=== PATIENT | male | born 1960 | race Caucasian/White ===

== ENCOUNTER 2019-05-05 15:11 | Inpatient (IN) | payer OTHER ==
[~2019-05-05] VITALS: Ht 193 cm; Wt 129.7 kg
[2019-05-05 15:18] VITALS: Ht 193 cm; Wt 129.7 kg
--- NOTE | 2019-05-05 16:00 | NUR ---
RECEIVED AWAKE ALERT ORIENTED, STATED HAD CHEST PAIN 2 DAYS AGO ND NOW FREE OF CHEST PAINS , HERE MAINLY FOR BILATERAL LOWER EXTREMITIES SKIN RASH WITH MILD PITTING EDEMA,
--- NOTE | 2019-05-05 16:20 | NUR ---
IV ESTABLISHED BLOOD DRAWN FOR CHEST CT SCAN WITH CONTRAST ,
[2019-05-05 16:21] LABS: BASOPHIL % 0.4 % (0-2); PLATELET COUNT 207 x10^3mcL (130-400); RED CELL DISTRIBUTION WIDTH 14.5 % (11.5-14.5)
[2019-05-05 16:32] LABS: CALCIUM 8.5 mg/dL (8.5-10.1); CARBON DIOXIDE 26.3 mmol/L (21-32); CHLORIDE SERUM 99 mmol/L (98-107); CREATININE SERUM 1.2 mg/dL (0.7-1.3); GFR1 > 60 mL/min; GLUCOSE SERUM 278 mg/dL (74-106); POTASSIUM SERUM 3.8 mmol/L (3.5-5.1); SODIUM SERUM 137 mmol/L (136-145)
[2019-05-05 16:37] LABS: ALKALINE PHOSPHATASE 90 U/L (46-116); ALT/SGPT 21 U/L (16-63); AST/SGOT 17 U/L (15-37); BILIRUBIN TOTAL 0.84 mg/dL (0.20-1.00); TOTAL PROTEIN, SERUM 6.5 g/dL (6.4-8.2)
[2019-05-05 16:41] LABS: ALBUMIN 3.1 g/dL (3.4-5.0)
--- NOTE | 2019-05-05 18:11 | NUR ---
WAITING CT SCAN AND US RESULTS,RESTING IN BED, BANKRUPTCY JUDGE IN SR,
[2019-05-05] MEDS ORDERED: EFFEXOR-XR150 MG PO (18:50)
[2019-05-05] MEDS ORDERED: ABILIFY5 M1 PO (18:51)
[2019-05-05] MEDS ORDERED: METOPROLOL TART25 M1 PO (18:52)
[2019-05-05] MEDS ORDERED: FENOFIBRATE145 M1 PO (18:53)
[2019-05-05] MEDS ORDERED: ATACAND32 MG (18:53)
[2019-05-05] MEDS ORDERED: JARDIANCE10 MG (18:55)
[2019-05-05] MEDS ORDERED: XARELTO20 M1 PO (18:55)
[2019-05-05] MEDS ORDERED: TRADJENTA5 M1 (18:55)
[2019-05-05] MEDS ORDERED: LIPI20 PO (18:56)
--- NOTE | 2019-05-05 19:30 | NUR ---
RECEIVED REPORT FROM CHERRI ELLIS IN ER. PT IS ALERT AND ORIENTED X4. PUPILS REACTIVE TO LIGHT. PT IS BREATHING E/U ON RA. LUNG SOUNDS CLEAR TO BILATERAL UPPER LOBES, DIMINISHED TO BILATERAL LOWER LOBES. S1 S2 HEART SOUNDS AUSCULTATED. CAP REFILL <3 SECS X4. SKIN IS WARM AND CONSISTENT WITH ETHNICITY. PERIPHERAL IV TO RAC PATENT, DRESSING CDI. HEP LOCK. ABD IS SOFT AND ROUNDED WITH ACTIVE BOWEL SOUNDS X4Q. HARDY DRAINING VIA GRAVITY. URINE IS JULIO WITH FAIR OUTPUT. PT HAS REDNESS TO BLE, WITH PITTING EDEMA. EXTREMITIES ELEVATED. ALL QUESTIONS AND CONCERNS ANSWERED.
--- NOTE | 2019-05-05 20:25 | NUR ---
REPORT GIVEN TO CHERRI VENTURA TO ASSUME CARE OF PT.
[2019-05-05 20:28] LABS: LIPASE 124 IU/L (73-393); MAGNESIUM 2.1 mg/dL (1.8-2.4); PHOSPHOROUS 3.5 mg/dL (2.5-4.9)
[2019-05-05 20:29] LABS: T3 TOTAL 0.91 ng/mL
[2019-05-05 20:30] LABS: CHOLESTEROL 270 mg/dL (<200); HDL CHOLESTEROL 30 mg/dL (40-60); TRIGLYCERIDES 1297 mg/dL (<150)
--- NOTE | 2019-05-05 20:40 | NUR ---
PT TRANSFERRED TO TELE FLOOR ACCOMPANIED BY NURSE AND EMT. PT CONNECTED TO MONITOR DURING TRANSFER. NO S/S OF DISTRESS. RESP E/U. IV SITE PATENT, NO S/S OF INFILTRATION.
[2019-05-05 20:41] LABS: microscopic required? NO
[2019-05-05 20:54] LABS: FREE T4 1.19 ng/dL (0.76-1.46); FREE THYROXINE INDEX 3.4 ug/dL (1.4-4.5); T4(THYROXINE) 8.8 ug/dL (4.7-13.3)
[2019-05-05 21:01] LABS: UA SPECIFIC GRAVITY <=1.005 (1.005-1.035); urine erythrocyte NEGATIVE (NEGATIVE)
[2019-05-05 21:10] LABS: AMPHETAMINE QUAL UR NONE DETECTED (See below)
[2019-05-05 21:16] VITALS: BP 1125/56
--- NOTE | 2019-05-05 21:26 | NUR ---
RECEIVED PT FROM ER, PT ADMIT FOR CHEST PAIN, PT IS A/O X4, VERBAL RESPONSIVE, ABLE TO TELL WHAT HE NEEDS. LUNG SOUND CLEAR BILATERAL, NO COUGH, NO SOB,. PT IS ON TELE 16, NSR, DENY ANY CHEST PAIN AT THIS MOMENT, PT STATE HAS CHEST DISCOMFORT FOR PAST 2 DAYS. BUT NO PAIN AT THIS MOMENT, BOWEL SOUND PRESENT ALL 4 QUADRANTS, NO DISTENTION, NO TENDER. PEDAL PULSE PRESENT BOTH FEET, BLE RED AND SWELLING NOTED. PT STATE THAT HAPPEN X 1 DAYS. IV AT RIGHT AC, NO LEAKING, NO INFILTRATION. ALL ADLS ASSIST, ALL NEED MET, CALL LIGHT IN REACH, WILL CONTINUE TO MONITOR.
--- NOTE | 2019-05-06 01:56 | NUR ---
PT SLEEPING. CHEST RISE AND FALL PRESENT. NS INFUSING AT 100 ML/HR. WILL CONTINUE TO MONITOR.
--- NOTE | 2019-05-06 05:45 | NUR ---
PT SLEEPING. CHEST RISE AND FALL. LAB AT BEDSIDE FOR BLOOD DRAW.
[2019-05-06 06:44] LABS: CALCIUM 8.2 mg/dL (8.5-10.1); CARBON DIOXIDE 30.9 mmol/L (21-32); CHLORIDE SERUM 104 mmol/L (98-107); CREATININE SERUM 0.9 mg/dL (0.7-1.3); GFR1 > 60 mL/min; GLUCOSE SERUM 187 mg/dL (74-106); POTASSIUM SERUM 4.2 mmol/L (3.5-5.1); SODIUM SERUM 142 mmol/L (136-145)
[2019-05-06 06:45] LABS: BASOPHIL % 0.5 % (0-2); PLATELET COUNT 157 x10^3mcL (130-400)
[2019-05-06 06:56] LABS: RED CELL DISTRIBUTION WIDTH 14.6 % (11.5-14.5)
[2019-05-06 07:10] VITALS: BP 140/70
--- NOTE | 2019-05-06 07:20 | NUR ---
RECEIVED PT FROM BOTTOM SAW OPERATOR CHERRI. Sanjeev/SAVANNAH. TELE#[id number]. DENIES CHEST PAIN/PRESSURE. RESPIRATIONS EQUAL AND UNLABORED ON RA. DENIES SOB. PT DENIES ANY PAIN AT THIS TIME. PT DENIES ANY ABDOMINAL PAIN. LAB AT BEDSIDE DRAWING AM LABS. AMBULATES PER BRP. ERYTHEMA RASH SCATTERED THROUGHOUT BLE, BLOWER FEEDER DYED RAW STOCK. PT STATES "IT JUST HAPPENED. I DONT HAVE ANY PAIN OR ITCHINESS TO THEM. THIS HAS HAPPENED BEFORE BUT NOT THIS BAD" IV PATENT AND INFUSING TO RAC. NO REDNESS OR SWELLING NOTED. WILL CONTINUE TO MONITOR. CALL LIGHT IN REACH. BED IN LOWEST POSITION.
[2019-05-06 08:14] VITALS: BP 119/71
--- NOTE | 2019-05-06 09:25 | NUR ---
PT SITTING UP IN BED. NO ACUTE RESP DISTRESS NOTED ON RA. PT DENIES ANY PAIN AT THIS TIME. GIVEN PO MEDS. TOLERATED WELL. FAMILY AT BEDSIDE. PT ASKING IF EFFEXOR IS CARRIED A CAPSULE. PT STATES "I USUALLY TAKE EFFEXOR XR CAPSULE" SPOKE WITH EZEKIEL WE DO CARRY THE MEDICATION. PER EZEKIEL WILL FIX MORNING DOSE FOR TOMORROW. PT UPDATED. WILL CONTINUE TO MONITOR. CALL LIGHT IN REACH. BED IN LOWEST POSITION.
[2019-05-06 11:20] VITALS: BP 111/64
--- NOTE | 2019-05-06 12:05 | NUR ---
PT SITTING UP. NO ACUTE RESP DISTRESS NOTED ON RA. DR. GEIGER AT BEDSIDE. PT EAGAR TO BE DISCHARGED. DR. GEIGER OKAY WITH DISCHARGING PT TODAY. PT BLOOD SUGAR CHECKED WAS 193. GIVEN 3 UNITS OF REGULAR INSULIN PER SLIDING SCALE. INFORMED PT ONCE DISCHARGE IS AVAILABLE WILL D/C PT HOME. PT VERBALIZED UNDERSTANDING. PT WANTS TO WAIT TO DISCHARGE AFTER EATING LUNCH. WILL CONTINUE TO MONITOR. CALL LIGHT IN REACH. BED IN LOWEST POSITION.
--- NOTE | 2019-05-06 12:24 | NUR ---
ECHO NOT DONE PT. REFUSED. BEING DISCHARGED HOME
--- NOTE | 2019-05-06 13:00 | NUR ---
PT SITTING UP AT BEDSIDE. PT GIVEN DISCHARGE INSTRUCTIONS. PT ENCOURAGED TO CONTINUE ACTIVITY TOLERATED. PT ENCOURAGED TO FOLLOW A CARDIAC DIET. PT ENCOURAGED TO CONTINUE HOME MEDICATIONS PRESCRIBED. PT INSTRUCTED DOSE TO EFFEXOR AND METROPOLOL WERE GIVEN TODAY, CONTINUE TO TAKE MEDS PRESCRIBED. PT VERBALIZED UNDERSTANDING. PT GIVEN DISCHARGE INSTRUCTIONS WITH LABS AND DIAGNOSTIC TEST DONE WHILE INPATIENT. PT VERBALIZED UNDERSTANDING. PT ENCOURAGED TO FOLLOW UP WITH PCP WITHIN 1 WEEK, PT STATES "I HAVE AN APPOINTMENT WITH MY PCP ON SATURDAY 05/12. IV TO RAC REMOVED CATHETER INTACT. NO REDNESS OR SWELLING NOTED. ALL QUESTIONS AND CONCERNS ADDRESSED. NO PROBLEMS ENCOUNTERED. TELE#[id number] RETURNED TO MATERIALS MANAGEMENT SUPERVISOR MARTHA. PT TAKEN OFF FLOOR BY SACHIN.
== END 2019-05-06 13:14 | disposition home or self-care (01) | DRG 206 ==
LOC: ED 15:11 → DU 19:49
PROVIDERS: ADMIT General Practice
DX: M94.0 Chondrocostal junction syndrome [Tietze] (principal); E11.65 Type 2 diabetes mellitus with hyperglycemia; R60.9 Edema, unspecified; R21 Rash and other nonspecific skin eruption; I11.9 Hypertensive heart disease without heart failure; I25.10 Atherosclerotic heart disease of native coronary artery without angina pectoris; J44.9 Chronic obstructive pulmonary disease, unspecified; F32.9 Major depressive disorder, single episode, unspecified; Z79.84 Long term (current) use of oral hypoglycemic drugs; Z95.5 Presence of coronary angioplasty implant and graft; Z86.711 Personal history of pulmonary embolism; Z86.718 Personal history of other venous thrombosis and embolism; Z79.01 Long term (current) use of anticoagulants; Z68.35 Body mass index [BMI] 35.0-35.9, adult
CPT/HCPCS: 82962; 83880; 84439; 90732; G0378; J1200; J7030; Q0092; Q9967